=== PATIENT | male | born 2000 | race Caucasian/White ===

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

== ENCOUNTER 2022-05-08 03:18 | Emergency (ER) | payer OTHER ==
[2022-05-08 03:29] VITALS: BP 123/76; PULSE 84; RESP 16; TEMP 99
[2022-05-08] MEDS ORDERED: IBUPROFEN 400 MG TAB PO STA (03:37)
[2022-05-08] MEDS ORDERED: ACETAMINOPHEN TAB 500 MG TAB PO STA (03:37)
--- NOTE | 2022-05-08 03:45 | ED ---
URI HPI - General Chief Complaint: Upper Respiratory Infection Stated Complaint: Headache, Cough Time Seen by Provider: 05/08/22 03:33 Source: patient, RN notes reviewed Mode of arrival: ambulatory Limitations: no limitations - History of Present Illness Initial Comments: This is a pleasant 21-year-old male who presents complaining of nasal congestion, runny nose, cough, fever, body aches. Patient's girlfriend has similar symptomology. Patient is a nonsmoker. Denies any significant past medical history. Exposed to COVID-19 at work. Mild headache, chills with no definitive fever, no changes in vision or hearing, no sore throat or difficulty with speech, no neck pain, POSITIVE chest discomfort only with cough, no abdominal pain, no nausea or vomiting, no changes in urination or bowel movements, no numbness or tingling, no extremity pain, no skin rashes or lesions. Past medical, surgical, social, and family history reviewed. - Related Data Home Medications Medication Instructions Recorded Confirmed No Known Home Medications 08/13/20 08/13/20 Allergies Allergy/AdvReac Type Severity Reaction Status Date / Time No Known Allergies Allergy Verified 05/08/22 03:26 Review of Systems ROS Statement: Those systems with pertinent positive or pertinent negative responses have been documented in the HPI. ROS Other: All systems not noted in ROS Statement are negative. Past Medical History Additional Past Medical History / Comment(s): nirali's History of Any Multi-Drug Resistant Organisms: None Reported Past Surgical History: No Surgical Hx Reported Past Psychological History: No Psychological Hx Reported Smoking Status: Never smoker Past Alcohol Use History: Occasional Past Drug Use History: Marijuana General Exam - General Exam Comments Initial Comments: Patient does not appear to be ill or toxic. Vital signs stable, patient afebrile. Limitations: no limitations General appearance: alert, in no apparent distress Head exam: Present: atraumatic, normocephalic, normal inspection Eye exam: Present: normal appearance, PERRL, EOMI. Absent: scleral icterus, conjunctival injection, periorbital swelling ENT exam: Present: normal exam, normal oropharynx, mucous membranes moist, TM's normal bilaterally, normal external ear exam, other (Clear postnasal drainage without tonsillar adenopathy or exudate). Absent: mucous membranes dry Neck exam: Present: normal inspection, full ROM. Absent: tenderness, meningismus, lymphadenopathy Respiratory exam: Present: normal lung sounds bilaterally. Absent: respiratory distress, wheezes, rales, rhonchi, stridor, chest wall tenderness, accessory muscle use, decreased breath sounds, prolonged expiratory Cardiovascular Exam: Present: regular rate, normal rhythm, normal heart sounds. Absent: systolic murmur, diastolic murmur, rubs, gallop, clicks GI/Abdominal exam: Present: soft, normal bowel sounds. Absent: distended, tenderness, guarding, rebound, rigid Extremities exam: Present: normal inspection, full ROM, normal capillary refill. Absent: tenderness, pedal edema, joint swelling, calf tenderness Back exam: Present: normal inspection Neurological exam: Present: alert, oriented X3, CN II-XII intact Psychiatric exam: Present: normal affect, normal mood Skin exam: Present: warm, dry, intact, normal color. Absent: rash Course Vital Signs 05/08/22 03:27 Temperature 99 F Pulse Rate 84 Respiratory 16 Rate Blood Pressure 123/76 O2 Sat by Pulse 98 Oximetry - Reevaluation(s) Reevaluation #1: 05/08/22 03:54 Medical record is reviewed Symptoms are improved here in the emergency department Patient is informed of results and questions answered Patient in no distress Medical Decision Making - Medical Decision Making Patient presents with symptoms consistent with viral upper respiratory infection with cough. Differential diagnosis: COVID-19, influenza, RSV, other viral illness such as rhinovirus adenovirus possible. Does not appear to be consistent with lobar pneumonia as the patient has no adventitious lung sounds and no active fever. No respiratory distress. Not consistent with abdominal or urogenital etiology. Patient counseled on etiology and disease course of viral illnesses. COVID-19 test ordered. Patient positive for COVID-19. Discussed quarantine measures and masking in detail. Patient was told to return to the ER for any signs or symptoms worsen. Told to return immediately if any other problems arise. All questions answered. Treatment plan discussed. Patient in agreement Every effort has been made to ensure accuracy of this dictation. However, due to the limitations of electronic medical records and dictation devices, errors in charting still occur. [employer] Manager Dr. Feliciano - Lab Data Lab Results 05/08/22 Range/Units 03:28 Coronavirus (PCR) Detected A (Not Detectd) - Radiology Data Radiology results: report reviewed, image reviewed Two-view chest x-ray independently interpreted by me reveals no evidence of acute pathology. No cardiomegaly. No infiltrate. No effusion. No pneumothorax. No osseous lesion. Awaiting radiology interpretation. Disposition Clinical Impression: COVID-19 Disposition: HOME SELF-CARE Condition: Good Instructions (If sedation given, give patient instructions): COVID-19 (Coronavirus Disease 2019) (ED) Additional Instructions: SELF QUARANTINE DISCHARGE: As you are at risk for symptoms due to coronavirus, please stay home and stay away from others as much as possible. Please maintain social distance of 6 feet if possible. You should not return to work until at least 3 days (72 hours) have passed since recovery of symptoms. This defined as resolution of fever without the use of fever reducing medicines and improvement in respiratory symptoms (e.g,, cough, shortness of breath) Isolation can end at least 5 days after symptom onset and after fever ends for 24 hours (without the use of fever-reducing medication) and symptoms are improving, if these people can continue to properly wear a well-fitted mask around others for 5 more days after the 5-day isolation period. If you're still having symptoms at the end of 5 day period, isolate for an additional 5 days. More information about what to do if you are sick can be found on the CDC website at https://www.cdc.gov/coronavirus/2019-ncov/qf-dks-sox-sick/iqums-tfjy-hotl.html Expect the symptoms to last for 7-14 days from onset. Use acetaminophen (Tylenol) as needed for discomfort. You can take a maximum of 1 gram every 6 hours for discomfort, with your total dose in 24 hours not exceeding 4 grams. Be sure to maintain hydration. Drink continuous water and/or items high in vitamin C, such as orange juice and/or lemonade. Unless you have high blood pressure, you may consider Sudafed (which is [id number]) for nasal congestion. I would suggest that a short acting Sudafed rather than the 24 hour Sudafed. For a cough you may take Mucinex or Robitussin. Also consider the use of Vicks Vapor Rub or your chest when you sleep. Use a humidifier that is cleaned frequently, in the bedroom at night. For Nausea /Vomiting/Diarrhea associated with your Illness: o Small frequent sips of room temperature liquids. o Diet: [employer] - If you are still experiencing discomfort and/or nausea please slowly advancing your diet using the BRAT Diet = bananas, rice, apples/apple sauce, toast. o With diarrhea avoid any dairy for 48 hours after symptoms resolved. o Continue with activity as tolerated. If your symptoms do get worse and you believe that the upper respiratory infection has developed into something else, such as pneumonia or severe dehydration, please return to the emergency department or follow-up with your primary care. But expect to be symptomatic for the days as indicated above Is patient prescribed a controlled substance at d/c from ED?: No Referrals: None,Stated [Primary Care Provider] - 1-2 days Time of Disposition: 03:54
--- NOTE | 2022-05-08 03:53 | XR ---
EXAMINATION TYPE: XR chest 2V DATE OF EXAM: 05/08/2022 COMPARISON: NONE HISTORY: Congestion TECHNIQUE: FINDINGS: Heart and mediastinum are normal. Lungs are clear. Diaphragm is normal. Bony thorax appears normal. IMPRESSION: Normal chest. Normal heart.
== END 2022-05-08 04:05 | disposition home or self-care (01) ==
LOC: EC 03:18
DX: U07.1 COVID-19 (principal); F12.90 Cannabis use, unspecified, uncomplicated
CPT/HCPCS: 71046; 87502; 87635; 99284

== ENCOUNTER 2022-06-25 09:34 | Emergency (ER) | payer OTHER ==
[2022-06-25 09:43] VITALS: RESP 16
[2022-06-25] MEDS ORDERED: ONDANSETRON 4 MG/2 ML VIAL IVP STA (10:02)
[2022-06-25] MEDS ORDERED: SODIUM CHLORIDE 0.9% 2,000 ML IV STA (10:02)
[2022-06-25 10:10] LABS: Basophils % (A) 1 %; Eosinophils # (A) 0.2 k/uL (0-0.7); Eosinophils % (A) 4 %; HCT 41.5 % (39.0-53.0); HGB 14.5 gm/dL (13.0-17.5); Lymphocytes # (A) 1.8 k/uL (1.0-4.8); Lymphocytes % (A) 34 %; MCH 31.1 pg (25.0-35.0); MCHC 34.8 g/dL (31.0-37.0); MCV 89.2 fL (80.0-100.0); Mean Platelet Volume 7.1; Monocytes # (A) 0.4 k/uL (0-1.0); Monocytes % (A) 7 %; Neutrophils # (A) 2.7 k/uL (1.3-7.7); Neutrophils % (A) 51 %; Platelet Count 241 k/uL (150-450); RBC 4.65 m/uL (4.30-5.90); RDW 12.7 % (11.5-15.5); WBC 5.3 k/uL (4.0-11.0)
--- NOTE | 2022-06-25 10:10 | ED ---
Nausea/Vomiting/Diarrhea HPI - General Chief complaint: Nausea/Vomiting/Diarrhea Stated complaint: Vomiting Time Seen by Provider: 06/25/22 09:43 Source: patient, RN notes reviewed Mode of arrival: ambulatory Limitations: no limitations - History of Present Illness Initial comments: 21-year-old male presents emergency Department with chief complaint of nausea vomiting. Patient states started overnight. Patient states that he has no localized abdominal pain. Patient states that he still very nauseated no reports of fevers chills and diarrhea constipation or dysuria no hematuria she's had no hematemesis or coffee-ground emesis he has no symptoms past medical history. - Related Data Previous Rx's Medication Instructions Recorded Ondansetron Odt [Zofran Odt] 4 mg PO Q8HR PRN #10 tab 06/25/22 Allergies Allergy/AdvReac Type Severity Reaction Status Date / Time No Known Allergies Allergy Verified 06/25/22 10:46 Review of Systems ROS Statement: Those systems with pertinent positive or pertinent negative responses have been documented in the HPI. ROS Other: All systems not noted in ROS Statement are negative. Past Medical History Additional Past Medical History / Comment(s): nirali's History of Any Multi-Drug Resistant Organisms: None Reported Past Surgical History: No Surgical Hx Reported Past Psychological History: No Psychological Hx Reported Smoking Status: Never smoker Past Alcohol Use History: Occasional Past Drug Use History: Marijuana General Exam Limitations: no limitations General appearance: alert, in no apparent distress Head exam: Present: atraumatic, normocephalic, normal inspection Eye exam: Present: normal appearance, PERRL, EOMI. Absent: scleral icterus, conjunctival injection, periorbital swelling ENT exam: Present: normal exam, normal oropharynx, mucous membranes moist Neck exam: Present: normal inspection, full ROM. Absent: tenderness, meningismus, lymphadenopathy Respiratory exam: Present: normal lung sounds bilaterally. Absent: respiratory distress, wheezes, rales, rhonchi, stridor Cardiovascular Exam: Present: regular rate, normal rhythm, normal heart sounds. Absent: systolic murmur, diastolic murmur, rubs, gallop, clicks GI/Abdominal exam: Present: soft, normal bowel sounds. Absent: distended, tenderness, guarding, rebound, rigid Course Vital Signs 06/25/22 09:41 Temperature 97 F L Pulse Rate 90 Respiratory 16 Rate Blood Pressure 119/83 O2 Sat by Pulse 100 Oximetry Medical Decision Making - Medical Decision Making Was pt. sent in by a medical professional or institution (ALESSANDRA Elaine, RESIDENT ATHLETIC TRAINER, urgent care, hospital, or fdc...) When possible be specific @ -No Did you speak to anyone other than the patient for history (EMS, parent, family, police, friend...)? What history was obtained from this source @ -No Did you review nursing and triage notes (agree or disagree)? Why? @ -I reviewed and agree with nursing and triage notes Were old charts reviewed (outside hosp., previous admission, EMS record, old EKG, old radiological studies, urgent care reports/EKG's, fdc records)? Report findings @ -No old charts were reviewed Differential Diagnosis (chest pain, altered mental status, abdominal pain women, abdominal pain men, vaginal bleeding, weakness, fever, dyspnea, syncope, headache, dizziness, GI bleed, back pain, seizure, CVA, palpatations, mental health)? @ -Gastric enteritis, nausea vomiting, abdominal pain, UTI, this lists is not all inclusive EKG interpreted by me (3pts min.). @ -None X-rays interpreted by me (1pt min.). @ -None done CT interpreted by me (1pt min.). @ -None done U/S interpreted by me (1pt. min.). @ -None done What testing was considered but not performed or refused? (CT, X-rays, U/S, labs)? Why? @ -X-ray/CT was considered though patient has no localized tenderness and normal labs What meds were considered but not given or refused? Why? @ -None Did you discuss the management of the patient with other professionals (professionals i.e. ALESSANDRA Elaine, RESIDENT ATHLETIC TRAINER, lab, RT, psych nurse, web content & social media manager, computer operator, teacher, disbursing officer, briefcase sewer)? Give summary @ -No Was smoking cessation discussed for >3mins.? @ -No Was critical care preformed (if so, how long)? @ -No Were there social determinants of health that impacted care today? How? (Homelessness, low income, unemployed, alcoholism, drug addiction, transportation, low edu. Level, literacy, decrease access to med. care, [facility], rehab)? @ -No Was there de-escalation of care discussed even if they declined (Discuss DNR or withdrawal of care, Hospice)? DNR status @ -No What co-morbidities impacted this encounter? (DM, HTN, Smoking, COPD, CAD, Cancer, CVA, ARF, Chemo, Hep., AIDS, mental health diagnosis, sleep apnea, morbid obesity)? @ -None Was patient admitted / discharged? Hospital course, mention meds given and route, prescriptions, significant lab abnormalities, going to OR and other pertinent info. @ -Discharge patient is improved after IV fluids, antiemetics with no acute abnormality's. Patient was discharged in stable condition return parameters were discussed. Undiagnosed new problem with uncertain prognosis? @ -No Drug Therapy requiring intensive monitoring for toxicity (Heparin, Nitro, Insulin, Cardizem)? @ -No Were any procedures done? @ -No Diagnosis/symptom? @ -Gastroenteritis Acute, or Chronic, or Acute on Chronic? @ -Acute Uncomplicated (without systemic symptoms) or Complicated (systemic symptoms)? @ -Uncomplicated Side effects of treatment? @ -No Exacerbation, Progression, or Severe Exacerbation? @ -No Poses a threat to life or bodily function? How? (Chest pain, [place], [place], pneumonia, PE, COPD, DKA, ARF, appy, cholecystitis, CVA, Diverticulitis, Homicidal, Suicidal, threat to staff... and all critical care pts) @ -No - Lab Data Result diagrams: 06/25/22 10:03 06/25/22 10:03 Lab Results 06/25/22 06/25/22 Range/Units 10:03 10:03 WBC 5.3 (4.0-11.0) k/uL RBC 4.65 (4.30-5.90) m/uL Hgb 14.5 (13.0-17.5) gm/dL Hct 41.5 (39.0-53.0) % MCV 89.2 (80.0-100.0) fL MCH 31.1 (25.0-35.0) pg MCHC 34.8 (31.0-37.0) g/dL RDW 12.7 (11.5-15.5) % Plt Count 241 (150-450) k/uL MPV 7.1 Neutrophils % 51 % Lymphocytes % 34 % Monocytes % 7 % Eosinophils % 4 % Basophils % 1 % Neutrophils # 2.7 (1.3-7.7) k/uL Lymphocytes # 1.8 (1.0-4.8) k/uL Monocytes # 0.4 (0-1.0) k/uL Eosinophils # 0.2 (0-0.7) k/uL Basophils # 0.0 (0-0.2) k/uL Sodium 139 (137-145) mmol/L Potassium 4.0 (3.5-5.1) mmol/L Chloride 104 (98-107) mmol/L Carbon Dioxide 26 (22-30) mmol/L Anion Gap 9 mmol/L BUN 15 (9-20) mg/dL Creatinine 0.73 (0.66-1.25) mg/dL Est GFR (CKD-EPI)AfAm >90 (>60 ml/min/1.73 sqM) Est GFR (CKD-EPI)NonAf >90 (>60 ml/min/1.73 sqM) Glucose 96 (74-99) mg/dL Calcium 9.1 (8.4-10.2) mg/dL Total Bilirubin 0.6 (0.2-1.3) mg/dL AST 22 (17-59) U/L ALT 18 (4-49) U/L Alkaline Phosphatase 59 (38-126) U/L Total Protein 7.8 (6.3-8.2) g/dL Albumin 4.7 (3.5-5.0) g/dL Lipase 39 (23-300) U/L Disposition Clinical Impression: Gastroenteritis Disposition: HOME SELF-CARE Condition: Stable Instructions (If sedation given, give patient instructions): Acute Nausea and Vomiting (ED) Additional Instructions: Please return to the Emergency Department if symptoms worsen or any other concerns. Prescriptions: Ondansetron Odt [Zofran Odt] 4 mg PO Q8HR PRN #10 tab PRN Reason: Nausea Is patient prescribed a controlled substance at d/c from ED?: No Referrals: None,Stated [Primary Care Provider] - 1-2 days Time of Disposition: 11:01
[2022-06-25 10:28] LABS: ALT 18 U/L (4-49); AST 22 U/L (17-59); African American GFR (CKD) >90 (>60 ml/min/1.73 sqM); Albumin 4.7 g/dL (3.5-5.0); Alkaline Phosphatase 59 U/L (38-126); Anion Gap 9 mmol/L; Blood Urea Nitrogen 15 mg/dL (9-20); Calcium 9.1 mg/dL (8.4-10.2); Carbon Dioxide 26 mmol/L (22-30); Chloride 104 mmol/L (98-107); Glucose 96 mg/dL (74-99); Lipase 39 U/L (23-300); Non-African American GFR(CKD) >90 (>60 ml/min/1.73 sqM); Sodium 139 mmol/L (137-145); Total Bilirubin 0.6 mg/dL (0.2-1.3); Total Protein 7.8 g/dL (6.3-8.2)
[2022-06-25 11:23] VITALS: BP 121/90; PULSE 61; TEMP 98.6
== END 2022-06-25 11:22 | disposition home or self-care (01) ==
LOC: EC 09:34
DX: K52.9 Noninfective gastroenteritis and colitis, unspecified (principal); F12.90 Cannabis use, unspecified, uncomplicated
CPT/HCPCS: 99284; 96374; 96361; 36415; 80053; 83690; 85025; J2405

== ENCOUNTER 2022-09-15 08:07 | Emergency (ER) | payer OTHER ==
[2022-09-15 08:36] VITALS: RESP 16
--- NOTE | 2022-09-15 08:36 | ED ---
ENT HPI - General Chief complaint: ENT Stated complaint: sore throat Time Seen by Provider: 09/15/22 08:21 Source: patient, RN notes reviewed Mode of arrival: ambulatory Limitations: no limitations - History of Present Illness Initial comments: 21-year-old male presents emergency Department chief complaint of nasal congestion, cough, congestion. Patient states that he initially a sore throat resolved states it felt like it is from the drainage. Patient states that it hurts when he coughs. He does admit to marijuana use. Patient denies a history of asthma or COPD. Patient denies were reported fever but complains of bodyaches. Patient denies any nausea vomiting diarrhea constipation. Patient offers no associated symptoms. - Related Data Previous Rx's Medication Instructions Recorded Ondansetron Odt [Zofran Odt] 4 mg PO Q8HR PRN #10 tab 06/25/22 Ondansetron Odt [Zofran Odt] 4 mg PO Q8HR PRN #15 tab 07/12/22 Fluticasone Nasal [place] [Flonase 2 spr EA NOSTRIL DAILY #16 gm 09/15/22 Nasal [place]] predniSONE 50 mg PO DAILY #5 tab 09/15/22 Allergies Allergy/AdvReac Type Severity Reaction Status Date / Time No Known Allergies Allergy Verified 09/15/22 08:19 Review of Systems ROS Statement: Those systems with pertinent positive or pertinent negative responses have been documented in the HPI. ROS Other: All systems not noted in ROS Statement are negative. 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 Absent: scleral icterus, conjunctival injection, periorbital swelling ENT exam: Present: normal exam, mucous membranes moist Neck exam: Present: normal inspection, full ROM. Absent: tenderness, meningismus, lymphadenopathy Respiratory exam: Present: normal lung sounds bilaterally. Absent: respiratory distress, wheezes, rales, rhonchi, stridor Cardiovascular Exam: Present: regular rate, normal rhythm, normal heart sounds. Absent: systolic murmur, diastolic murmur, rubs, gallop, clicks GI/Abdominal exam: Present: soft, normal bowel sounds. Absent: distended, tenderness, guarding, rebound, rigid Neurological exam: Present: alert Skin exam: Present: warm, dry, intact, normal color. Absent: rash Course Vital Signs 09/15/22 09/15/22 08:17 08:34 Temperature 98 F Pulse Rate 108 H Respiratory 18 16 Rate Blood Pressure 123/77 O2 Sat by Pulse 100 Oximetry Medical Decision Making - Medical Decision Making Was pt. sent in by a medical professional or institution (, ALESSANDRA, FRUIT HARVESTER MACHINE OPERATOR, urgent care, hospital, or half-way...) When possible be specific @ -No Did you speak to anyone other than the patient for history (EMS, parent, family, police, friend...)? What history was obtained from this source @ -No Did you review nursing and triage notes (agree or disagree)? Why? @ -I reviewed and agree with nursing and triage notes Were old charts reviewed (outside hosp., previous admission, EMS record, old EKG, old radiological studies, urgent care reports/EKG's, half-way records)? Report findings @ -No old charts were reviewed Differential Diagnosis (chest pain, altered mental status, abdominal pain women, abdominal pain men, vaginal bleeding, weakness, fever, dyspnea, syncope, headache, dizziness, GI bleed, back pain, seizure, CVA, palpatations, mental health, musculoskeletal)? @ -URI, pneumonia, acute bronchitis, sinusitis, Covid EKG interpreted by me (3pts min.). @ -None] X-rays interpreted by me (1pt min.). @ -Chest x-ray shows no acute process. CT interpreted by me (1pt min.). @ -None done U/S interpreted by me (1pt. min.). @ -None done What testing was considered but not performed or refused? (CT, X-rays, U/S, labs)? Why? @ -None What meds were considered but not given or refused? Why? @ -None Did you discuss the management of the patient with other professionals (professionals i.e. , ALESSANDRA, FRUIT HARVESTER MACHINE OPERATOR, lab, RT, psych nurse, healthcare social worker, teaching manager, teacher, retirement officer, director of casework)? Give summary @ -No Was smoking cessation discussed for >3mins.? @ -No Was critical care preformed (if so, how long)? @ -No Were there social determinants of health that impacted care today? How? (Homelessness, low income, unemployed, alcoholism, drug addiction, transportation, low edu. Level, literacy, decrease access to med. care, [facility]ci, rehab)? @ -No Was there de-escalation of care discussed even if they declined (Discuss DNR or withdrawal of care, Hospice)? DNR status @ -No What co-morbidities impacted this encounter? (DM, HTN, Smoking, COPD, CAD, Cancer, CVA, ARF, Chemo, Hep., AIDS, mental health diagnosis, sleep apnea, morbi d obesity)? @ -None Was patient admitted / discharged? Hospital course, mention meds given and route, prescriptions, significant lab abnormalities, going to OR and other pertinent info. @ -Discharged patient has a viral URI, acute bronchitis. Patient negative swab. Patient discharged in stable condition temperature discussed. Undiagnosed new problem with uncertain prognosis? @ -No Drug Therapy requiring intensive monitoring for toxicity (Heparin, Nitro, Insulin, Cardizem)? @ -No Were any procedures done? @ -No Diagnosis/symptom? @ -Acute bronchitis Acute, or Chronic, or Acute on Chronic? @ -Acute Uncomplicated (without systemic symptoms) or Complicated (systemic symptoms)? @ -Uncomplicated Side effects of treatment? @ -No Exacerbation, Progression, or Severe Exacerbation? @ -No Poses a threat to life or bodily function? How? (Chest pain, [place], [place], pneumonia, PE, COPD, DKA, ARF, appy, cholecystitis, CVA, Diverticulitis, Homicidal, Suicidal, threat to staff... and all critical care pts) @ -No - Lab Data Lab Results 09/15/22 Range/Units 08:32 Coronavirus (PCR) Not Detected (Not Detectd) Disposition Clinical Impression: Bronchitis Disposition: HOME SELF-CARE Condition: Stable Instructions (If sedation given, give patient instructions): Acute Bronchitis (ED) Additional Instructions: Please return to the Emergency Department if symptoms worsen or any other concerns. Prescriptions: Fluticasone Nasal [place] [Flonase Nasal [place]] 2 spr EA NOSTRIL DAILY #16 gm predniSONE 50 mg PO DAILY #5 tab Is patient prescribed a controlled substance at d/c from ED?: No Referrals: None,Stated [Primary Care Provider] - 1-2 days Time of Disposition: 09:50
--- NOTE | 2022-09-15 09:13 | XR ---
EXAMINATION TYPE: XR chest 2V DATE OF EXAM: 09/15/2022 COMPARISON: 05/08/2022 HISTORY: 21 year-old male shortness of breath TECHNIQUE: Frontal and lateral views FINDINGS: The cardiomediastinal silhouette, aorta, and pulmonary vasculature are within normal limits. There is hyperinflation. Lungs and pleural spaces are clear. IMPRESSION: Hyperinflation may relate to depth of inspiration or asthma. Clinically correlate. No acute cardiopul monary process.
[2022-09-15 10:08] VITALS: BP 120/75; PULSE 80; TEMP 98.4
== END 2022-09-15 10:08 | disposition home or self-care (01) ==
LOC: EC 08:07
DX: J40 Bronchitis, not specified as acute or chronic (principal); F12.90 Cannabis use, unspecified, uncomplicated; Z20.822 Contact with and (suspected) exposure to COVID-19
CPT/HCPCS: 71046; 87635; 99283

== ENCOUNTER 2022-09-27 04:13 | Emergency (ER) | payer OTHER ==
[2022-09-27 04:17] VITALS: BP 115/56; PULSE 65; RESP 17; TEMP 96.7
[2022-09-27] MEDS ORDERED: SODIUM CHLORIDE 0.9% 1,000 ML IV STA (05:07)
--- NOTE | 2022-09-27 05:23 | ED ---
Nausea/Vomiting/Diarrhea HPI - General Source: patient Mode of arrival: ambulatory Limitations: no limitations - History of Present Illness MD complaint: diarrhea, abdominal pain Onset/Timin -: days(s) Description of Diarrhea: water Associated Abdominal Pain: Yes Location: flank Radiation: none Severity: moderate Quality: aching Consistency: constant <Lazaro Barksdale - Last Filed: 09/27/22 07:36> <Jeferson Peters - Last Filed: 09/27/22 07:44> - General Chief complaint: Nausea/Vomiting/Diarrhea Stated complaint: Diarrhea Time Seen by Provider: 09/27/22 05:07 - Related Data Previous Rx's Medication Instructions Recorded Ondansetron Odt [Zofran Odt] 4 mg PO Q8HR PRN #10 tab 06/25/22 Ondansetron Odt [Zofran Odt] 4 mg PO Q8HR PRN #15 tab 07/12/22 Fluticasone Nasal [place] [Flonase 2 spr EA NOSTRIL DAILY #16 gm 09/15/22 Nasal [place]] predniSONE 50 mg PO DAILY #5 tab 09/15/22 Diphenoxylate HCl/Atropine 1 - 2 tab PO QID PRN 3 Days #24 tab 09/27/22 [Lomotil 2.5-0.025 mg Tablet] Allergies Allergy/AdvReac Type Severity Reaction Status Date / Time No Known Allergies Allergy Verified 09/15/22 08:19 Review of Systems ROS Other: All systems not noted in ROS Statement are negative. Constitutional: Denies: fever, chills Respiratory: Reports: cough. Denies: dyspnea Gastrointestinal: Reports: diarrhea Genitourinary: Denies: dysuria, hematuria Musculoskeletal: Denies: back pain Skin: Denies: rash Neurological: Denies: headache, weakness, numbness <Lazaro Barksdale - Last Filed: 09/27/22 07:36> ROS Other: All systems not noted in ROS Statement are negative. <Jeferson Peters - Last Filed: 09/27/22 07:44> ROS Statement: Those systems with pertinent positive or pertinent negative responses have been documented in the HPI. 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 Absent: scleral icterus, conjunctival injection Respiratory exam: Present: normal lung sounds bilaterally, chest wall tenderness. Absent: respiratory distress, wheezes, rales, rhonchi, stridor, accessory muscle use Cardiovascular Exam: Present: regular rate, normal rhythm, normal heart sounds. Absent: systolic murmur, diastolic murmur, rubs, gallop GI/Abdominal exam: Present: soft. Absent: distended, tenderness, guarding, rebound, rigid, mass Extremities exam: Present: normal inspection, normal capillary refill. Absent: pedal edema, calf tenderness Back exam: Present: normal inspection. Absent: CVA tenderness (R), CVA tenderness (L) Neurological exam: Present: alert Skin exam: Present: warm, dry, intact, normal color. Absent: rash <Lazaro Barksdale - Last Filed: 09/27/22 07:36> Course Vital Signs 09/27/22 04:14 Temperature 96.7 F L Pulse Rate 65 Respiratory 17 Rate Blood Pressure 115/56 O2 Sat by Pulse 100 Oximetry Medical Decision Making - Lab Data Result diagrams: 09/27/22 05:07 09/27/22 05:07 <Lazaro Barksdale - Last Filed: 09/27/22 07:36> - Lab Data Result diagrams: 09/27/22 05:07 09/27/22 05:07 <Jeferson Peters - Last Filed: 09/27/22 07:44> - Medical Decision Making Patient is 22-year-old man with recent bronchitis, here to have evaluation after multiple episodes of diarrhea developed tonight. Was pt. sent in by a medical professional or institution (, PA, HORSE RACING ANALYST, urgent care, hospital, or fci...) When possible be specific @ -[No] Did you speak to anyone other than the patient for history (EMS, parent, family, police, friend...)? What history was obtained from this source @ -[No] Did you review nursing and triage notes (agree or disagree)? Why? @ -[I reviewed and agree with nursing and triage notes] Were old charts reviewed (outside hosp., previous admission, EMS record, old EKG, old radiological studies, urgent care reports/EKG's, fci records)? Report findings @ -[No old charts were reviewed] Differential Diagnosis (chest pain, altered mental status, abdominal pain women, abdominal pain men, vaginal bleeding, weakness, fever, dyspnea, syncope, headache, dizziness, GI bleed, back pain, seizure, CVA, palpatations, mental health, musculoskeletal)? @ -[Differential diverticulosis, gastroenteritis, bowel obstruction, constipation, peptic ulcer disease, splenic infarction, this is not meant to be an all-inclusive list EKG interpreted by me (3pts min.). @ -[ X-rays interpreted by me (1pt min.). @ -[As above CT interpreted by me (1pt min.). @ -[None done] U/S interpreted by me (1pt. min.). @ -[None done] What testing was considered but not performed or refused? (CT, X-rays, U/S, labs)? Why? @ -[None] What meds were considered but not given or refused? Why? @ -[None] Did you discuss the management of the patient with other professionals (professionals i.e. , PA, HORSE RACING ANALYST, lab, RT, psych nurse, secondary social studies teacher, hazardous waste material technician, teacher, soil science technical officer, case management coordinator)? Give summary @ -[No] Was smoking cessation discussed for >3mins.? @ -[No] Was critical care preformed (if so, how long)? @ -[No] Were there social determinants of health that impacted care today? How? (Homelessness, low income, unemployed, alcoholism, drug addiction, transportation, low edu. Level, literacy, decrease access to med. care, retirement, rehab)? @ -[No] Was there de-escalation of care discussed even if they declined (Discuss DNR or withdrawal of care, Hospice)? DNR status @ -[No] What co-morbidities impacted this encounter? (DM, HTN, Smoking, COPD, CAD, Cancer, CVA, ARF, Chemo, Hep., AIDS, mental health diagnosis, sleep apnea, morbid obesity)? @ -[None] Was patient admitted / discharged? Hospital course, mention meds given and route, prescriptions, significant lab abnormalities, going to OR and other pertinent info. @ -[ The patient is signed out at shift change pending the result of the x-ray (Lazaro Barksdale) Was patient admitted / discharged? Hospital course, mention meds given and route, prescriptions, significant lab abnormalities, going to OR and other pertinent info. @ -I went back into reevaluate the patient he was feeling much better and wanted to be discharged home. Patient states he had no diarrhea since been emergency department. Patient had no pain at this time. Undiagnosed new problem [facility] ncertain prognosis? @ -[No] Drug Therapy requiring intensive monitoring for toxicity (Heparin, Yasir,Insulin, Cardizem)? @ -[No] Wee ny procedures done? @ -[No] Diagnosis/symptom? @ -Acute diarrhea Acute, or Chronic, or Acute on Chronic? @ -Acute Uncomplicated (without systemic symptoms) or Complicated (systemic symptoms)? @ -Uncomplicated Cristhian efects of treatment? @ -[No] Exacerbation, Progression, r evere Exacerbation? @ -[No] Poses a threat to life or bodily function? How? (Chest pain, [place], [place], pneumonia, PE, COPD, DKA, ARF, appy, cholecystitis, CVA, Diverticulitis, Homicidal, Suicidal, threat to staff... andal critical care pts) @ -[No] (Jeferson Peters) - Lab Data Lab Results 09/27/22 09/27/22 Range/Units 05:07 05:07 WBC 7.1 (3.8-10.6) k/uL RBC 4.31 (4.30-5.90) m/uL Hgb 13.0 (13.0-17.5) gm/dL Hct 38.2 L (39.0-53.0) % MCV 88.7 (80.0-100.0) fL MCH 30.3 (25.0-35.0) pg MCHC 34.1 (31.0-37.0) g/dL RDW 13.0 (11.5-15.5) % Plt Count 256 (150-450) k/uL MPV 7.2 Neutrophils % 63 % Lymphocytes % 24 % Monocytes % 7 % Eosinophils % 3 % Basophils % 0 % Neutrophils # 4.4 (1.3-7.7) k/uL Lymphocytes # 1.7 (1.0-4.8) k/uL Monocytes # 0.5 (0-1.0) k/uL Eosinophils # 0.2 (0-0.7) k/uL Basophils # 0.0 (0-0.2) k/uL Sodium 138 (137-145) mmol/L Potassium 4.3 (3.5-5.1) mmol/L Chloride 104 (98-107) mmol/L Carbon Dioxide 27 (22-30) mmol/L Anion Gap 7 mmol/L BUN 12 (9-20) mg/dL Creatinine 0.64 L (0.66-1.25) mg/dL Est GFR (CKD-EPI)AfAm >90 (>60 ml/min/1.73 sqM) Est GFR (CKD-EPI)NonAf >90 (>60 ml/min/1.73 sqM) Glucose 87 (74-99) mg/dL Calcium 8.9 (8.4-10.2) mg/dL Total Bilirubin 0.3 (0.2-1.3) mg/dL AST 21 (17-59) U/L ALT 17 (4-49) U/L Alkaline Phosphatase 53 (38-126) U/L C-Reactive Protein <0.5 (<1.0) mg/dL Total Protein 7.0 (6.3-8.2) g/dL Albumin 4.1 (3.5-5.0) g/dL Disposition Is patient prescribed a controlled substance at d/c from ED?: No <Lazaro Barksdale - Last Filed: 09/27/22 07:36> Time of Disposition: 07:44 <Jeferson Peters - Last Filed: 09/27/22 07:44> Clinical Impression: Diarrhea Disposition: HOME SELF-CARE Condition: Good Instructions (If sedation given, give patient instructions): Acute Diarrhea (ED) Prescriptions: Diphenoxylate HCl/Atropine [Lomotil 2.5-0.025 mg Tablet] 1 - 2 tab PO QID PRN 3 Days #24 tab PRN Reason: Diarrhea Referrals: None,Stated [Primary Care Provider] - 1-2 days
[2022-09-27 06:15] LABS: Basophils % (A) 0 %; Eosinophils # (A) 0.2 k/uL (0-0.7); Eosinophils % (A) 3 %; HCT 38.2 % (39.0-53.0); Lymphocytes # (A) 1.7 k/uL (1.0-4.8); Lymphocytes % (A) 24 %; MCH 30.3 pg (25.0-35.0); MCHC 34.1 g/dL (31.0-37.0); MCV 88.7 fL (80.0-100.0); Mean Platelet Volume 7.2; Monocytes # (A) 0.5 k/uL (0-1.0); Monocytes % (A) 7 %; Neutrophils # (A) 4.4 k/uL (1.3-7.7); Neutrophils % (A) 63 %; Platelet Count 256 k/uL (150-450); RBC 4.31 m/uL (4.30-5.90); WBC 7.1 k/uL (3.8-10.6)
[2022-09-27 06:21] LABS: ALT 17 U/L (4-49); AST 21 U/L (17-59); African American GFR (CKD) >90 (>60 ml/min/1.73 sqM); Albumin 4.1 g/dL (3.5-5.0); Alkaline Phosphatase 53 U/L (38-126); Anion Gap 7 mmol/L; Blood Urea Nitrogen 12 mg/dL (9-20); Calcium 8.9 mg/dL (8.4-10.2); Carbon Dioxide 27 mmol/L (22-30); Chloride 104 mmol/L (98-107); Glucose 87 mg/dL (74-99); Non-African American GFR(CKD) >90 (>60 ml/min/1.73 sqM); Potassium 4.3 mmol/L (3.5-5.1); Sodium 138 mmol/L (137-145); Total Bilirubin 0.3 mg/dL (0.2-1.3)
[2022-09-27 06:57] LABS: C Reactive Protein <0.5 mg/dL (<1.0)
--- NOTE | 2022-09-27 07:27 | XR ---
EXAMINATION TYPE: XR chest 2V DATE OF EXAM: 09/27/2022 6:17 AM COMPARISON: Chest radiographs from 09/15/2022 TECHNIQUE: XR chest 2V Frontal and lateral views of the chest. CLINICAL INDICATION:Male, 22 years old with history of cough; FINDINGS: Lungs/Pleura: There is no evidence of pleural effusion, focal consolidation, or pneumothorax. Pulmonary vascularity: Unremarkable. Heart/mediastinum: Cardiomediastinal silhouette is unremarkable. Musculoskeletal: No acute osseous pathology. IMPRESSION: No acute cardiopulmonary disease/process.
[2022-09-27 07:54] LABS: Appearance,Urine Clear (Clear); Bilirubin,Urine Negative (Negative); Blood,Urine Small (Negative); Color,Urine Colorless; Glucose,Urine (UA) Negative (Negative); Ketones,Urine Negative (Negative); Leukocyte Esterase,Urine Negative (Negative); Nitrite,Urine Negative (Negative); PH, Urine 6.5 (5.0-8.0); Protein,Urine Negative (Negative); RBC,Urine 2 /hpf (0-5); Specific Gravity,Urine 1.003 (1.001-1.035); Urobilinogen,Urine <2.0 mg/dL (<2.0); WBC,Urine 3 /hpf (0-5)
== END 2022-09-27 07:58 | disposition home or self-care (01) ==
LOC: EC 04:13
DX: R19.7 Diarrhea, unspecified (principal); F12.90 Cannabis use, unspecified, uncomplicated
CPT/HCPCS: 36415; 71046; 80053; 81001; 85025; 86140; 96360; 99284